=== PATIENT | male | born 1965 | race American Indian/Alaskan Native ===

== ENCOUNTER 2020-02-18 16:31 | Observation (INO) | payer OTHER ==
[~2020-02-18] VITALS: Ht 165.1 cm; Wt 71.8 kg
[2020-02-18 16:50] LABS: BASOPHILS % (AUTO) 0.6 % (0.0-5.0); EOSINOPHILS % (AUTO) 9.8 % (0.0-8.0); HEMATOCRIT 48.7 % (42-54); LYMPHOCYTES % (AUTO) 20.7 % (21.0-51.0); MEAN CORPUSCULAR HEMOGLOBIN 32.6 pg (27.0-33.0); MEAN CORPUSCULAR HGB CONC 35.5 g/dL (32.0-36.0); MEAN CORPUSCULAR VOLUME 91.7 fL (79-99); MONOCYTES % (AUTO) 11.9 % (3.0-13.0); PLATELET COUNT (AUTO) 229 K/uL (130-400); RED BLOOD CELL COUNT(AUTO) 5.31 MIL/uL (4.50-6.20); RED CELL DISTRIBUTION WIDTH 12.4 % (11.0-15.5); WHITE BLOOD COUNT (AUTO) 5.1 K/uL (4.8-10.8)
[2020-02-18] MEDS ORDERED: ONDANSETRON HCL 4 MG/2 ML VIAL ONE ×2 (16:53→21:47)
[2020-02-18] MEDS ORDERED: SODIUM CHLORIDE 0.9% 1000ML 1,000 ML IV ONE ×2 (16:53→21:48)
[2020-02-18] MEDS ORDERED: MORPHINE SULFATE 4 MG/1ML SYG ONE (16:53)
[2020-02-18 17:13] LABS: INR 0.94 (0.85-1.15); PARTIAL THROMBOPLASTIN TIME 24.5 SEC (26.3-35.5); PROTHROMBIN TIME 10.2 SEC (9.6-11.6)
[2020-02-18 17:15] LABS: ALBUMIN 4.7 g/dL (3.5-5.0); BILIRUBIN,TOTAL 0.8 mg/dL (0.2-1.0); CREATININE 1.6 mg/dL (0.5-1.5); POTASSIUM 3.3 mmol/L (3.5-5.1); TOTAL PROTEIN, SERUM 8.9 g/dL (6.0-8.3)
[2020-02-18] MEDS ORDERED: TETANUS/DIPHTHERIA TOXOID [ADULT] 0.5 ML VIAL IM ONE (17:16)
[2020-02-18] MEDS ORDERED: CEFAZOLIN SODIUM 1 GM VIAL ONE (17:16)
[2020-02-18] MEDS ORDERED: DIPHENHYDRAMINE HCL 25 MG CAPSULE PO PRN (17:30)
[2020-02-18] MEDS ORDERED: DiphenhydrAMINE HCL 50 MG/ML VIAL IV PRN (17:30)
[2020-02-18] MEDS ORDERED: ZOLPIDEM TARTRATE 5 MG TAB PO PRN (17:30)
[2020-02-18] MEDS ORDERED: MAG HYDROX/AL HYDROX/SIMETH ES 30 ML SUSP UDCUP PO PRN (17:30)
[2020-02-18] MEDS: SODIUM CHLORIDE 0.9% 1000ML 1,000 ML IV SCH (17:30)
[2020-02-18] MEDS ORDERED: GUAIFENESIN-DM 200/20 MG 10 ML PO PRN (17:30)
[2020-02-18] MEDS ORDERED: ONDANSETRON HCL 4 MG/2 ML VIAL IVP PRN (17:30)
[2020-02-18] MEDS ORDERED: MORPHINE SULFATE 4 MG/1ML SYG IV PRN (17:30)
[2020-02-18] MEDS ORDERED: MORPHINE SULFATE 2 MG/ML 1ML SYG IVP PRN (17:30)
[2020-02-18] MEDS ORDERED: FAMOTIDINE/PF 20 MG/2 ML VIAL IV ONE (21:47)
[2020-02-18] MEDS ORDERED: LABETALOL 20 MG/4 ML DISP.SYRIN IV ONE (21:47)
[2020-02-18] MEDS ORDERED: MORPHINE SULFATE 2 MG/ML 1ML SYG ONE (21:47)
[2020-02-18 22:55] VITALS: BP 161/95
[2020-02-18] MEDS ORDERED: POTASSIUM CHLORIDE 20 MEQ ERTAB PO SCH (23:45)
[2020-02-18] MEDS ORDERED: POTASSIUM CHLORIDE 20 MEQ ERTAB PO ONE (23:46)
[2020-02-19] VITALS (20 sets, daily range): BP systolic 112–179; BP diastolic 69–98
[2020-02-19] MEDS ORDERED: KETOROLAC TROMETHAMINE 30MG/ML ONE (03:20)
[2020-02-19] MEDS ORDERED: KETOROLAC TROMETHAMINE 15MG/ML IV SCH (04:15)
[2020-02-19 05:56] LABS: BASOPHILS % (AUTO) 0.5 % (0.0-5.0); HEMATOCRIT 41.8 % (42-54); LYMPHOCYTES % (AUTO) 25.1 % (21.0-51.0); MEAN CORPUSCULAR HEMOGLOBIN 31.8 pg (27.0-33.0); MEAN CORPUSCULAR HGB CONC 34.2 g/dL (32.0-36.0); MEAN CORPUSCULAR VOLUME 93.1 fL (79-99); NEUTROPHILS % (AUTO) 60.4 % (40.0-77.0); PLATELET COUNT (AUTO) 186 K/uL (130-400); RED BLOOD CELL COUNT(AUTO) 4.49 MIL/uL (4.50-6.20); RED CELL DISTRIBUTION WIDTH 12.4 % (11.0-15.5); WHITE BLOOD COUNT (AUTO) 4.1 K/uL (4.8-10.8)
[2020-02-19 06:21] LABS: POTASSIUM 4.3 mmol/L (3.5-5.1)
[2020-02-19] MEDS ORDERED: CEFAZOLIN SODIUM 1 GM VIAL IVP SCH (06:40)
[2020-02-19] MEDS: SODIUM CHLORIDE 0.9% 1000ML 1,000 ML IV SCH (07:47)
[2020-02-19] MEDS ORDERED: FAMOTIDINE/PF 20 MG/2 ML VIAL IV SCH (09:00)
[2020-02-19] MEDS ORDERED: LACTATED RINGERS 1000ML 1,000 ML IV ONE (09:25)
[2020-02-19] MEDS ORDERED: CEFAZOLIN SODIUM 1 GM VIAL ONE (09:28)
[2020-02-19] MEDS ORDERED: PROPOFOL 10 MG/ML 20ML VIAL IV ONE (09:32)
[2020-02-19] MEDS ORDERED: LIDOCAINE PF 2% 5ML ABBOJECT ONE (09:32)
[2020-02-19] MEDS ORDERED: ROCURONIUM 10MG/1ML SYR 10 MG/ML ML ONE (09:32)
[2020-02-19] MEDS ORDERED: MIDAZOLAM HCL 1 MG/ML 2ML VIAL ONE (09:32)
[2020-02-19] MEDS ORDERED: SUCCINYLCHOLINE 200MG/10ML SYR ONE (09:32)
[2020-02-19] MEDS ORDERED: FENTANYL CITRATE PF 50 MCG/1 ML 2ML VIAL ONE (09:33)
[2020-02-19] MEDS ORDERED: DEXAMETHASONE SOD PHOSPHATE 4 MG/ML 1ML VIAL ONE (10:08)
[2020-02-19] MEDS ORDERED: GLYCOPYRROLATE 1 MG/5 ML SYRINGE ONE (10:08)
[2020-02-19] MEDS ORDERED: ONDANSETRON HCL 4 MG/2 ML VIAL ONE (10:08)
[2020-02-19] MEDS ORDERED: HYDROCODONE/ACETAMINOPHEN 5/325 MG TAB PO SCH (10:15)
[2020-02-19] MEDS ORDERED: AMLODIPINE BESYLATE 5 MG TAB PO SCH (12:02)
== END 2020-02-19 15:15 | disposition home or self-care (01) ==
LOC: EDH 16:31 → EDHIP 17:29 → INTOOBSV 17:29 → 3CH 22:23
PROVIDERS: ADMIT Internal Medicine; ATTEND Internal Medicine
DX: S68.111A Complete traumatic metacarpophalangeal amputation of left index finger, initial encounter (principal); Z20.828 Contact with and (suspected) exposure to other viral communicable diseases; E86.0 Dehydration; E87.6 Hypokalemia; I10 Essential (primary) hypertension; F12.90 Cannabis use, unspecified, uncomplicated; F17.200 Nicotine dependence, unspecified, uncomplicated; Z23 Encounter for immunization; W23.0XXA Caught, crushed, jammed, or pinched between moving objects, initial encounter; Y93.89 Activity, other specified; Y92.812 Truck as the place of occurrence of the external cause; Y99.8 Other external cause status
CPT/HCPCS: 26951; 36415 ×2; 71045; 73130; 80048; 80053; 85025 ×2; 85610; 85730; 87426; 90471; 90714; 96361; 96374; 96375; 96376; 99285; A4565; A4606; A6223; G0378 ×20; J0330; J0690 ×3; J1100; J1885; J2001; J2250; J2270 ×2; J2405 ×3; J2704; J3010; J3490 ×3; J7030 ×2; J7120; U0003